=== PATIENT | male | born 1980 | race African-American/Black ===

== ENCOUNTER 2016-08-26 06:17 | Inpatient (IN) | payer OTHER ==
--- NOTE | ~2016-08-26 | DS ---
Unit #: [id number] #: [id number] Patient: MARTIN FRIED [id number] [facility] [address] [place] [address] [id number] MR#: [id number] NAME: MARTIN FRIED ROOM: 75 Age: 35 Sex: M Admission Date: 08/26/2016 : 1980 Discharge Date: 08/27/2016 Attending Physician: Tremayne Del Toro M.D. Primary Care Physician: Generic Doctor Not In System DISCHARGE SUMMARY REASON FOR ADMISSION The patient is a 35-year-old male, admitted after he had allegedly made homicidal threats at [facility]. HOSPITAL COURSE The patient was admitted to the [facility] unit and placed per 72-hour hold which had been initiated by the emergency room physician. When seen by this physician, the patient denied all accusations made regarding homicidal threats etc. He was informed that given the circumstances and documentation, he would have to remain hospitalized for least 24 hours. He agreed to do so and was generally pleasant and cooperative in his interactions with peers and staff. By 08/27/2016, the patient was in bright spirits. He denied suicidal or homicidal ideation. This physician contacted the patient's girlfriend and he expressed no concerns regarding his potential discharge from the hospital. During hospitalization, the patient was started on Vistaril 50 mg q.4 hours p.r.n. anxiety and will be given a prescription for this. When he leaves the hospital, arrangements will also be made for community mental health treatment. FINAL DIAGNOSIS Adjustment disorder with depressed mood. DISPOSITION ON DISCHARGE The patient is discharged on the following medications: Vistaril 50 mg q.4 hours p.r.n. anxiety. FOLLOWUP Followup will take place through the auspices of community mental health resources. PROGNOSIS The patient's prognosis is considered fair. Dictated by... Tremayne Del Toro M.D. OSCAR/neel TD: 08/27/2016 14:16 JOB #: [id number] Unit #: [id number] #: [id number] Patient: MARTIN FRIED DISCHARGE SUMMARY Page 1 of 1 X Tremayne Del Toro MD DISCHARGE SUMMARY
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
[~2016-08-26 06:17] MED LIST: VOLTAREN75 MG PO
[2016-08-27 09:35] LABS: BASOPHIL% 0.4 % (0-2.5); EOSINOPHIL% 0.5 % (0.0-7.0); HEMATOCRIT 46.1 % (38.0-50.0); HEMOGLOBIN 15.8 gm/dL (13.0-16.0); LYMPHOCYTE# 2.9 X10e3 (1.0-3.5); LYMPHOCYTE% 41.8 % (17.0-45.0); MEAN CELL VOLUME 98.9 FL (83-96); MEAN CORPUSCULAR HEMOGLOBIN 33.8 PG (28-34); MEAN CORPUSCULAR HGB CONC 34.1 g/dL (30-36); MONOCYTE# 0.7 X10e3 (0-1.0); MONOCYTE% 9.9 % (3.0-12.0); NEUTROPHIL# 3.2 X10e3 (1.5-7.1); NEUTROPHIL% 47.4 % (40-75); PLATELET COUNT 218 X10e3 (140-420); RED BLOOD COUNT 4.67 X10e (3.90-5.60); RED CELL DISTRIBUTION WIDTH 12.6 % (11.0-15.5); WHITE BLOOD COUNT 6.8 X10e3 (4.0-10.5)
[2016-08-27 09:37] LABS: DIFF IND NO
[2016-08-27 09:50] LABS: ALBUMIN SERUM 4.2 g/dL (3.5-5.0); BILIRUBIN,TOTAL 1.3 mg/dL (0.2-2.0); BUN/CREATININE RATIO 10.76; CALCIUM SERUM 9.8 mg/dL (8.4-10.2); CREATININE SERUM 1.3 mg/dL (0.6-1.4); GLOM FILT RATE Estimated 80.8 mL/min (>60); POTASSIUM 4.1 mmol/L (3.5-5.1); PROTEIN TOTAL SERUM 7.1 g/dL (6.0-8.3)
== END 2016-08-27 14:55 | disposition home or self-care (01) | DRG 881 ==
LOC: P1E 06:17
PROVIDERS: Specialist
DX: F43.21 Adjustment disorder with depressed mood (principal); F11.10 Opioid abuse, uncomplicated; Z88.0 Allergy status to penicillin; F12.10 Cannabis abuse, uncomplicated; I34.1 Nonrheumatic mitral (valve) prolapse
CPT/HCPCS: 80053; 85025